=== PATIENT | female | born 2000 | race Caucasian/White ===

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

== ENCOUNTER 2020-03-29 16:42 | Outpatient (REF) | payer OTHER, SELFPAY | END 2020-03-29 16:43 | disposition home or self-care (01) | LOC: HO.LAB 16:42 | PROVIDERS: Visit Provider Internal Medicine | DX: Z20.822 Contact with and (suspected) exposure to COVID-19 (principal) | CPT/HCPCS: 36415; C9803; U0003; U0005 ==

== ENCOUNTER 2020-09-16 13:42 | Outpatient (REF) | payer OTHER, SELFPAY ==
[2020-09-19 03:47] LABS: HBc Num1 0.18 S/CO (0.00-0.79); HBsAGNum1 0.17 S/CO (0.00-0.99); Hepatitis B Core Antibody Nonreactive (Nonreactive); Hepatitis B Surface Antigen Negative (Negative)
[2020-09-19 03:55] LABS: HBS Num1 0.18 mIU/mL (0-7.99); ~Hepatitis B Surface Antibody NONREACTIVE (Nonreactive)
[2020-09-19 16:57] LABS: TS Negative Control Passed; TS Panel A 0; TS Panel B 0; TS Positive Control Passed; TSpotTB Negative (SeeBelow)
[2020-09-19 18:05] LABS: Mumps Virus IgG Antibody <9.00 AU/mL; Rubeola IgG (Measles) <13.50 AU/mL
[2020-09-19 18:16] LABS: Rubella IgG Antibody 1.47 Index; Varicella IgG Antibody <135.00 index
== END 2020-09-16 13:43 | disposition home or self-care (01) ==
LOC: HO.LAB 13:42
PROVIDERS: Visit Provider Internal Medicine
DX: Z01.84 Encounter for antibody response examination (principal); Z11.1 Encounter for screening for respiratory tuberculosis
CPT/HCPCS: 36415; 86481; 86704; 86706; 86735; 86762; 86765; 86787; 87340

== ENCOUNTER 2020-10-27 15:45 | Outpatient (REF) | payer OTHER, SELFPAY | END 2020-10-27 15:46 | disposition home or self-care (01) | LOC: HO.LAB 15:45 | PROVIDERS: Visit Provider Internal Medicine | DX: Z20.822 Contact with and (suspected) exposure to COVID-19 (principal) | CPT/HCPCS: C9803; U0003; U0005 ==

== ENCOUNTER 2020-12-08 11:03 | Outpatient (REF) | payer OTHER, SELFPAY ==
[2020-12-08 11:40] LABS: COVID-19 Test Negative (Negative)
== END 2020-12-08 11:04 | disposition home or self-care (01) ==
LOC: HO.LAB 11:03
PROVIDERS: Visit Provider Internal Medicine
DX: Z20.822 Contact with and (suspected) exposure to COVID-19 (principal)
CPT/HCPCS: 36415; 87635; C9803

== ENCOUNTER 2021-01-12 12:09 | Outpatient (REF) | payer OTHER, SELFPAY ==
[2021-01-12 12:58] LABS: COVID-19 Test Negative (Negative)
== END 2021-01-12 12:10 | disposition home or self-care (01) ==
LOC: HO.LAB 12:09
PROVIDERS: Visit Provider Internal Medicine
DX: Z20.822 Contact with and (suspected) exposure to COVID-19 (principal)
CPT/HCPCS: 36415; 87635; C9803

== ENCOUNTER 2021-05-04 08:30 | Outpatient (REF) | payer OTHER, SELFPAY ==
[2021-05-04 09:29] LABS: Hematocrit 40.9 % (37.0-47.0); Hemoglobin 13.3 g/dl (12.0-16.0); Mean Corpuscular HGB Conc 32.5 g/dl (31.0-35.0); Mean Corpuscular Hemoglobin 28.7 pg (27.0-33.0); Mean Corpuscular Volume 88.3 fL (80.0-98.0); Mean Platelet Volume 9.8 fL (9.4-12.3); Platelet Count 360 X10*3/uL (160-400); Red Blood Count 4.63 X10*6/uL (4.20-5.50); Red Cell Distribution Width 12.1 % (11.0-16.0); White Blood Count 10.6 X10*3/uL (4.8-10.8)
[2021-05-04 10:15] LABS: Anion Gap 13 (12-20); Blood Urea Nitrogen 20 mg/dL (9-16); Calcium 9.8 mg/dL (8.4-10.2); Carbon Dioxide 24 mmol/L (22-29); Chloride 106 mmol/L (96-108); Cholesterol 132 mg/dL; Estimated Glomerular Filt Rate > 60; Glucose Fasting 84 mg/dL (60-99); HDL Cholesterol 43 mg/dL; LDL Cholesterol Calculated 79 mg/dl; Potassium 4.2 mmol/L (3.3-5.1); Sodium 139 mmol/L (135-145); Triglycerides 53 mg/dL
[2021-05-04 10:22] LABS: TSH reflex Free T4 1.47 uIU/mL (0.32-4.0)
== END 2021-05-04 08:31 | disposition home or self-care (01) ==
LOC: HO.LAB 08:30
PROVIDERS: PCP Internal Medicine; Visit Provider Nurse Practitioner Family
DX: Z00.00 Encounter for general adult medical examination without abnormal findings (principal); E66.9 Obesity, unspecified; F41.9 Anxiety disorder, unspecified; E78.00 Pure hypercholesterolemia, unspecified
CPT/HCPCS: 36415; 80048; 80061; 84443; 85027

== ENCOUNTER 2021-10-09 10:54 | Outpatient (REF) | payer BC, SELFPAY ==
[2021-10-11 22:36] LABS: TS Negative Control Passed; TS Panel A 0; TS Panel B 0; TS Positive Control Passed; TSpotTB Negative (Negative)
== END 2021-10-09 10:55 | disposition home or self-care (01) ==
LOC: HO.LAB 10:54
PROVIDERS: PCP Internal Medicine; Visit Provider Internal Medicine
DX: Z11.1 Encounter for screening for respiratory tuberculosis (principal)
CPT/HCPCS: 36415; 86481

== ENCOUNTER 2021-12-14 13:54 | Outpatient (REF) | payer BC, SELFPAY ==
[2021-12-16 13:22] LABS: TS Negative Control Passed; TS Panel A 1; TS Panel B 1; TS Positive Control Passed; TSpotTB Negative (Negative)
== END 2021-12-14 13:55 | disposition home or self-care (01) ==
LOC: HO.LAB 13:54
PROVIDERS: PCP Internal Medicine; Visit Provider Internal Medicine
DX: Z11.1 Encounter for screening for respiratory tuberculosis (principal)
CPT/HCPCS: 36415; 86481

== ENCOUNTER → 2022-08-29 08:07 | Outpatient (BNVA) | payer OTHER, SELFPAY | PROVIDERS: PCP Internal Medicine; Visit Provider Physician Assistant Surgical ==

== ENCOUNTER 2023-05-23 11:47 | Emergency (ER) | payer OTHER, SELFPAY ==
[2023-05-23 11:54] VITALS: BP 138/88; PULSE 97; RESP 16; TEMP 37; O2SAT 99; BMI 43.8
--- NOTE | 2023-05-23 11:54 | ED.GENADULT ---
HPI - General Adult General Chief complaint: OB Stated complaint: Not feeling well Related Data Home Medications Medication Instructions Recorded Confirmed hydroxyzine HCl 10 mg tablet 10 mg PO TID PRN 08/29/22 Previous Rx's Medication Instructions Recorded meclizine 25 mg tablet 25 mg PO DAILY PRN motion sickness 09/21/20 7 days #7 tabs escitalopram oxalate 10 mg tablet 10 mg PO DAILY 90 days #90 tabs 05/21/23 Allergies Allergy/AdvReac Type Severity Reaction Status Date / Time No Known Allergies Allergy Verified 05/23/23 11:54 COUNTS INCLUDE 234 BEDS AT THE [facility] Past Medical History Medical History (Updated 05/24/23 @ 16:16 by KHOA Lee) Vertigo Obese Anxiety Surgical History (Updated 08/29/22 @ 08:27 by ZAIN Iraheta) Hx of wisdom tooth extraction Hx of LASIK Family History Family History Mother Hypertension Father GERD (gastroesophageal reflux disease) Family/Other Substance use disorder Brother Anxiety Social History Social History (Updated 07/20/22 @ 13:46 by LIBRA Carr) Housing: Apartment Alcohol intake: current Alcohol intake frequency: holidays/special occasions only Alcohol type: beer Patient Tobacco Use Status: Never used Tobacco e-Cigarette/Vaping Use: Never Used Second Hand Smoke Exposure: No Advance Directives: No Advance Directives Information Provided: No service: No Current occupational status: employed Cognitive needs: No Hearing needs: No Vision needs: No Physical Exam ED Vital Signs: Vital Signs - 24 hr 05/23/23 11:54 Temperature 98.6 F Pulse Rate 97 Respiratory Rate 16 Blood Pressure 138/88 Pulse Oximetry 99 Oxygen Delivery Method Room Air BMI result Body Mass Index 43.8 Course Course Course Narrative: RME:?23 yo female, 34 wks , here for eval of not feeling well . admits to headache, body aches x2 days. reports blowing her nose this morning and there were chunks of blood . once she got to work she felt clammy. talked to her OB who advised her to come to the ED. last OB appointment was 2 weeks ago without complications. admits that she's had more vaginal discharge and lower abdominal cramping which her OB is aware of and believes she may be experiencing aldo bah. no vaginal bleeding. labs ordered Full HPI, ROS and PE to be performed by the primary ED provider. Reevaluation(s) Reevaluation #1: Patient left the ED without completing treatment Medical Decision Making Lab Data Labs: Lab Results 05/23/23 Range/Units 12:40 Influenza Type A (PCR) NEGATIVE (Negative) Influenza Type B (PCR) NEGATIVE (Negative) RSV RNA Qual (PCR) NEGATIVE (Negative) SARS-CoV-2 RNA (RT-PCR) NEGATIVE (Negative) Discharge Plan Discharge Clinical Impression: Flu-like symptoms Patient Disposition: Left W/O Completing Treatment Prescriptions: No Action meclizine 25 mg tablet 25 mg PO DAILY PRN (Reason: motion sickness) 7 Days Qty: 7 0RF escitalopram oxalate 10 mg tablet 10 mg PO DAILY 90 Days Qty: 90 0RF hydroxyzine HCl 10 mg tablet 10 mg PO TID PRN Discharge Date/Time: 05/23/23 13:58
--- NOTE | 2023-05-23 12:41 | MHC.EDTECH ---
This pct attempted to draw labs on patient but patients veins blow easily and are very deep
[2023-05-23 13:27] LABS: Influenza A PCR NEGATIVE (Negative); Influenza B PCR NEGATIVE (Negative); Resp Syncy Virus RNA Qual PCR NEGATIVE (Negative); SARS COV2 PCR INHOUSE NEGATIVE (Negative)
== END 2023-05-23 13:58 | disposition left against medical advice (07) ==
PROVIDERS: Physician Assistant Medical; Emergency Provider Emergency Medicine; PCP Internal Medicine
DX: O26.893 Other specified pregnancy related conditions, third trimester (principal); R51.9 Headache, unspecified; R68.89 Other general symptoms and signs; Z3A.34 34 weeks gestation of pregnancy; Z03.818 Encounter for observation for suspected exposure to other biological agents ruled out
CPT/HCPCS: 0241U; 99281; 99283

== ENCOUNTER 2024-06-12 10:49 | Outpatient (REF) | payer BC, OTHER, SELFPAY ==
[2024-06-15 16:04] LABS: TS Negative Control Passed; TS Panel A 0; TS Panel B 0; TS Positive Control Passed; TSpotTB Negative (Negative)
== END 2024-06-12 10:50 | disposition home or self-care (01) ==
LOC: HO.LAB 10:49
PROVIDERS: PCP Internal Medicine; Visit Provider Internal Medicine
DX: Z11.1 Encounter for screening for respiratory tuberculosis (principal)
CPT/HCPCS: 36415; 86481

== ENCOUNTER 2024-08-28 14:31 | Emergency (ER) | payer BC, OTHER, SELFPAY ==
--- NOTE | ~2024-08-28 | US_ITS ---
CLINICAL HISTORY: RUQ epigastric pain --- Additional Notes or Special Instructions: look at gallbladder, ducts, liver, pancreas US abdomen limited. COMPARISON: None provided. Technique: Real time sonographic imaging, including color-flow imaging, was performed by the electrification adviser. Multiple new accounts representative static images were saved for review. FINDINGS: The visualized portions of the pancreas appear normal. The liver has diffusely increased echogenicity. Focal fatty sparing present along the gallbladder fossa. The main portal vein is antegrade. Liver, right lobe size: 17.7 cm, enlarged The gallbladder is normal in size. No cholelithiasis or sludge identified. There is a equivocal sonographic Vallejo's sign as patient had received pain medication. Gallbladder wall: 2 mm, normal. Common bile duct: 3 mm, normal. No free intraperitoneal fluid identified. IMPRESSION: 1. No acute findings. No evidence of cholecystitis. 2. Hepatomegaly with hepatic steatosis. This document has been electronically signed by: Yusuf Noble MD on 08/28/2024 17:52:39
[2024-08-28 14:46] VITALS: BP 130/99; PULSE 108; RESP 17; TEMP 36.8; O2SAT 98; BMI 39.6
--- NOTE | 2024-08-28 14:46 | ED.ABDPAIN ---
HPI - Abdominal Pain General Chief Complaint: Nausea/Vomiting/Diarrhea Stated Complaint: abd pain Time Seen by Provider: 08/28/24 14:45 Source: patient Mode of arrival: ambulatory Limitations: no limitations History of Present Illness ED Provider: ANGELICA BAHENA PA-C HPI narrative: 24 year old female presents to the ED today for evaluation of epigastric abdominal pain which began early this morning. Pain is localized to epigastric region, no radiation. Pain has been constant since onset, wax and wanes in severity, described as a sharp sensation. Pain is currently 4/10 and 8/10 at its worst. Reports pain began after eating a slice of pizza and some ice cream early this morning around 0100. She states her partner at bedside consumed this food as well however he is asymptomatic. Reports associated loose stools and 3 episodes of nonbloody emesis. Unable to tolerate PO intake. She did not trial any OTC meds for her pain. Denies recent antibiotic use. Denies recent travel outside the [place] She is currently on Zepbound for weight loss and has been tolerating this well. Denies etoh consumption. Denies illicit substance use. Denies fever, chills, urinary sx. Related Data Home Medications ?Medication ?Instructions ?Recorded ?Confirmed hydroxyzine HCl 10 mg tablet 10 mg PO TID PRN 08/29/22 Previous Rx's ?Medication ?Instructions ?Recorded meclizine 25 mg tablet 25 mg PO DAILY PRN motion sickness 09/21/20 7 days #7 tabs escitalopram oxalate 10 mg tablet 10 mg PO DAILY 90 days #90 tabs 06/07/24 ondansetron 4 mg disintegrating 4 mg PO Q12H PRN nausea and 08/28/24 tablet vomiting 5 days #10 tabs Allergies Allergy/AdvReac Type Severity Reaction Status Date / Time No Known Allergies Allergy Verified 08/28/24 14:47 Review of Systems Review of Systems Constitutional: No fever, chills, fatigue, night sweats, weight changes ENT/Mouth: No ear pain, hearing loss, nasal congestion, sinus pain, rhinorrhea, sore throat Eyes: No eye pain, swelling, redness, vision changes, discharge Cardio: No chest pain, palpitations, GOULD, orthopnea, peripheral edema Pulm: No SOB, cough, sputum, wheezing, dyspnea, hemoptysis GI: No hematemesis, constipation, hematochezia, melena, +abd pain, +N/V/D : No irregular bleeding, dysuria, frequency, urgency, hesitancy, hematuria, flank pain, urinary flow changes, urinary incontinence or retention MSK: No back pain, neck pain, joint pain, myalgias Skin: No lesions, rashes Neuro: No weakness, numbness, paresthesias, LOC, dizziness, headache Psych: No anxiety/panic, depression, SI/HI, AH/VH All other systems reviewed and are negative. [facility] Past Medical History Attestation statement: The following information was validated with the patient. Source: old records reviewed and nursing notes reviewed Medical History Vertigo Obese Anxiety Surgical History Hx of wisdom tooth extraction Hx of LASIK Family History Family History Mother Hypertension Father GERD (gastroesophageal reflux disease) Family/Other Substance use disorder Brother Anxiety Social History Social History Housing: Apartment Alcohol intake: current Alcohol intake frequency: holidays/special occasions only Alcohol type: beer Patient Tobacco Use Status: Never used Tobacco e-Cigarette/Vaping Use: Never Used Second Hand Smoke Exposure: No service: No Current occupational status: employed Cognitive needs: No Hearing needs: No Vision needs: No Physical Exam ED Vital Signs: Vital Signs - 24 hr 08/28/24 14:46 08/28/24 15:25 08/28/24 18:05 Temperature 98.2 F 98.7 F Pulse Rate 108 H 65 65 Respiratory Rate 17 16 16 Blood Pressure 130/99 H 120/81 120/81 Pulse Oximetry 98 98 98 Oxygen Delivery Method Room Air Room Air Room Air BMI result Body Mass Index 39.6 Tachycardic, hypertensive, afebrile General: Well appearing, in no acute distress. Skin: Warm, dry, intact. No rashes or lesions. Head: Normocephalic, atraumatic. EENT: Hearing is intact b/l. Conjunctiva clear. Sclera is anicteric. PERRLA. EOM intact. Moist mucous membranes.? Neck: Supple without LAD Cardiac: Chest wall symmetric. RRR Lungs: Normal respiratory effort without accessory muscle use. CTA bilaterally Abdomen: soft, nondistended, tender to palpation of epigastric region and right upper quadrant. No rebound tenderness. Active bowel sounds x4. Back: No midline spinous or paraspinal tenderness. No step off deformity. Ext: Upper and lower extremities atraumatic, without tenderness, deformity, swelling or erythema Neuro: AOx3. Normal speech. Ambulating with steady gait. Course Course Course Narrative: 1616 -- CBC with leukocytosis to 16.5 with left shift. This may be reactive secondary to vomiting. No anemia. H&H stable. Chemistry without acute electrolyte abnormality requiring intervention. No KASHIF. Liver function WNL. Lipase WNL. UA/ u preg pending. US pending. > medicated with IV fluids, Toradol, Zofran. Plan to re-evaluate. 1800 -- Ultrasound unremarkable. Incidental finding of hepatic steatosis. Gallbladder normal. I have suspicion for gastroenteritis. Patient is well-appearing, hemodynamically stable, reports improvement in symptoms with meds and fluids. Used shared decision-making to determine discharge home. Patient has remained stable throughout ED visit today. Discussed worrisome signs and symptoms and when to return to the ED. All questions answered at this time. Patient is agreeable with disposition and stable for discharge. Medical Decision Making Medical Decision Making [facility] Narrative: 24 year old female presents to the ED today for evaluation of epigastric abdominal pain which began early this morning. Tachycardic and hypertensive on arrival. Vitals have otherwise been stable. Afebrile. On exam, abdomen is soft, nondistended, tender to palpation of the epigastric region and right upper quadrant without rebound tenderness. Active bowel sounds x4. Plan for labs, viral swabs, UA, IVF + zofran and re-evaluation. Differential Diagnosis Differential Diagnoses: The differential diagnosis associated with the presentation includes gastroenteritis, biliary colic, cholecystitis, appendicitis, renal colic, nephrolithiasis, UTI, pyelonephritis, gastritis, PUD, IUP, viral syndrome Admission/Observation not indicated Lab Data [facility] Lab Attestation statement: I reviewed the patient's lab results. As above 08/28/24 15:19 08/28/24 15:19 Labs: Lab Results 0708/28/24 08/28/24 Range/Units 15:19 15:19 17:27 WBC 16.5 H (4.8-10.8) X10*3/uL RBC 5.17 (4.20-5.50) X10*6/uL Hgb 14.8 (12.0-16.0) g/dl Hct 43.0 (37.0-47.0) % MCV 83.2 (80.0-98.0) fL MCH 28.6 (27.0-33.0) pg MCHC 34.4 (31.0-35.0) g/dl RDW 12.9 (11.0-16.0) % Plt Count 380 (160-400) X10*3/uL MPV 9.3 L (9.4-12.3) fL Immature Gran % (Auto) 0.5 H (0.0-0.4) % Neut % (Auto) 83.3 H (45-73) % Lymph % (Auto) 10.7 L (20-40) % [place] % (Auto) 3.4 (2-11) % Eos % (Auto) 1.9 (0-4) % Baso % (Auto) 0.2 (0-2) % Lymph # (Auto) 1.8 (1.2-4.9) X10*3/uL [place] # (Auto) 0.6 (0.1-1.2) X10*3/uL Eos # (Auto) 0.3 (0.0-0.4) X10*3/uL Baso # (Auto) 0.0 (0.0-0.2) X10*3/uL Abs Immat Gran (auto) 0.09 H (0.00-0.03) X10*3/uL Absolute Neuts (auto) 13.7 H (2.0-8.3) x10*3/uL Absolute Nucleated RBC 0.000 (0.0-0.012) X10*3/uL Nucleated RBC % (auto) 0.0 (0.0-0.2) /100WBC Sodium 142 (135-145) mmol/L Potassium 4.2 (3.3-5.1) mmol/L Chloride 110 H (96-108) mmol/L Carbon Dioxide 21 L (22-29) mmol/L Anion Gap 15 (12-20) BUN 9 (9-16) mg/dL Creatinine 0.65 (0.5-1.4) mg/dL Estim Creat Clear Calc 157.4 Estimated GFR > 60 Random Glucose 89 (60-115) mg/dL Calcium 9.3 (8.4-10.2) mg/dL Magnesium 1.8 Cancelled (1.6-2.6) mg/dL Total Bilirubin 0.4 (0.0-1.0) mg/dL AST 24 (5-31) U/L ALT 23 (0-31) U/L Alkaline Phosphatase 63 (39-117) U/L Total Protein 7.3 (6.5-8.0) g/dL Albumin 4.5 (3.5-5.0) g/dL Lipase 14 (8-78) U/L Urine Color Yellow Urine Appearance Clear Urine pH 5.5 (5.0-9.0) Ur Specific [place] 1.025 (1.005-1.025) Urine Protein Trace (Neg-Trace) mg/dL Urine Glucose (UA) Negative (Negative) mg/dL Urine Ketones 40 (Negative) mg/dL Urine Blood Negative (Negative) Urine Nitrite Negative (Negative) Ur Leukocyte Esterase Negative (Negative) Urine RBC 0-2 (0-2) /HPF Urine WBC 0-5 (0-5) /HPF Ur Squamous Epith Cells 3-5 (0-2) /HPF Urine Bacteria None Seen (None Seen) Hyaline Casts 3-5 (0-2) /LPF Urine Test NEGATIVE (NEGATIVE) Independent Interpretation I performed an independent interpretation of an: Ultrasound Interpretation: Abdominal ultrasound without gallbladder stones Radiology Impression Discussion of test interpretation with radiology: I have reviewed the radiologist's reading. Radiologist Impression: Date of Service: 08/28/24 Procedure(s): US abdomen limited Accession Number(s): [id number] cc: Angelica Bahena; Angie Amador MD~ CLINICAL HISTORY: RUQ epigastric pain --- Additional Notes or Special Instructions: look at gallbladder, ducts, liver, pancreas US abdomen limited. COMPARISON: None provided. Technique: Real time sonographic imaging, including color-flow imaging, was performed by the [id number]/m60 tank driver. Multiple commercial sales representative static images were saved for review. FINDINGS: The visualized portions of the pancreas appear normal. The liver has diffusely increased echogenicity. Focal fatty sparing present along the gallbladder fossa. The main portal vein is antegrade. Liver, right lobe size: 17.7 cm, enlarged The gallbladder is normal in size. No cholelithiasis or sludge identified. There is a equivocal sonographic Vallejo's sign as patient had received pain medication. Gallbladder wall: 2 mm, normal. Common bile duct: 3 mm, normal. No free intraperitoneal fluid identified. IMPRESSION: 1. No acute findings. No evidence of cholecystitis. 2. Hepatomegaly with hepatic steatosis. This document has been electronically signed by: Yusuf Noble MD on 08/28/2024 17:52:39 External Record Review External record reviewed: Inpatient record, Office record, Outpatient record and Prior outpatient labs Prescription Management I considered prescription management with: Other (zofran) Social Determinants Patient?s care significantly limited by Social Determinants of Health including: Other Social Determinant of Health Medications Administered Discontinued Medications Generic Name Dose Route Start Last Admin Trade Name Freq PRN Reason Stop Dose Admin Sodium Chloride 1,000 mls @ 999 mls/hr 08/28/24 15:15 08/28/24 16:58 Ns IV 08/28/24 16:15 Infused .Q1H1M MATT Infusion Ketorolac Tromethamine 15 mg 08/28/24 15:48 08/28/24 15:59 Ketorolac Tromethamine 15 Mg/Ml Vial IVPUSH 08/28/24 15:49 15 mg ONCE ONE Administration Ondansetron HCl 4 mg 08/28/24 15:13 08/28/24 15:21 Ondansetron Hcl 4 Mg/2 Ml Vial IVPUSH 08/28/24 15:14 4 mg ONCE ONE Administration Critical Care Time Critical Care Time Critical Care Time: No Discharge Plan Discharge Clinical Impression: Gastroenteritis Patient Disposition: Home, Self-Care Instructions: Gastroenteritis (ED) Additional Instructions: Your lab workup today was reassuring.? Your urine test was negative for infection and .? Your symptoms are most consistent with a viral stomach bug, also known as gastroenteritis.? The treatment for this is supportive care. Symptoms usually resolve on their own in 48-72 hours.? The recommendation is rest and lots of oral hydration.? For the next 24 hours, stick to a VIANEY diet (bananas rice, applesauce, tea, and toast) Zofran is an anti-nausea medication. This has been sent to your pharmacy for you to take as needed for nausea.? You can also try over the counter Pepto Bismol or Imodium as needed for upset stomach and diarrhea.? Follow up with your primary care provider this week. If you develop new or worsening symptoms call 911 or come back to the ER for further evaluation. Prescriptions: New ondansetron 4 mg tablet,disintegrating 4 mg PO Q12H PRN (Reason: nausea and vomiting) 5 Days Qty: 10 0RF No Action meclizine 25 mg tablet 25 mg PO DAILY PRN (Reason: motion sickness) 7 Days Qty: 7 0RF escitalopram oxalate 10 mg tablet 10 mg PO DAILY 90 Days Qty: 90 0RF hydroxyzine HCl 10 mg tablet 10 mg PO TID PRN Stand Alone Forms: Work/School Release Interventions: ED Discharge Assessment Last Done: 08/28/24 18:05 Discharge Date/Time: 08/28/24 18:06 Print Language: Maltese
[2024-08-28 15:25] VITALS: BP 120/81; PULSE 65; RESP 16; O2SAT 98
[2024-08-28 15:29] LABS: MANUAL DIFF FLAG NO
[2024-08-28 15:33] LABS: Hematocrit 43.0 % (37.0-47.0); Hemoglobin 14.8 g/dl (12.0-16.0); Imm Gran Abs Auto 0.09 X10*3/uL (0.00-0.03); Imm Gran Pct Auto 0.5 % (0.0-0.4); Lymphocytes Absolute Auto 1.8 X10*3/uL (1.2-4.9); Mean Corpuscular HGB Conc 34.4 g/dl (31.0-35.0); Mean Corpuscular Hemoglobin 28.6 pg (27.0-33.0); Mean Corpuscular Volume 83.2 fL (80.0-98.0); NRBC Abs Auto 0.000 X10*3/uL (0.0-0.012); NRBC Pct Auto 0.0 /100WBC (0.0-0.2); Platelet Count 380 X10*3/uL (160-400); Red Blood Count 5.17 X10*6/uL (4.20-5.50); White Blood Count 16.5 X10*3/uL (4.8-10.8)
[2024-08-28 16:00] LABS: Alanine Aminotransferase 23 U/L (0-31); Albumin Level 4.5 g/dL (3.5-5.0); Alkaline Phosphatase 63 U/L (39-117); Anion Gap 15 (12-20); Aspartate Amino Transferase 24 U/L (5-31); Blood Urea Nitrogen 9 mg/dL (9-16); Calcium 9.3 mg/dL (8.4-10.2); Carbon Dioxide 21 mmol/L (22-29); Chloride 110 mmol/L (96-108); Creatinine Clr Calc Pharmacy 157.4; Estimated Glomerular Filt Rate > 60; Lipase 14 U/L (8-78); Magnesium 1.8 mg/dL (1.6-2.6); Potassium 4.2 mmol/L (3.3-5.1); Sodium 142 mmol/L (135-145); Total Protein 7.3 g/dL (6.5-8.0)
[2024-08-28 17:34] LABS: Appearance Urine Clear; Glucose Urine UA Negative (Negative); PH 5.5 (5.0-9.0); Specific Gravity - Urine 1.025 (1.005-1.025); UPreg QC Valid YES
[2024-08-28 18:05] VITALS: BP 120/81; PULSE 65; RESP 16; TEMP 37.1; O2SAT 98
== END 2024-08-28 18:06 | disposition home or self-care (01) ==
PROVIDERS: Emergency Provider Emergency Medicine Emergency Medical Services; PCP Internal Medicine
DX: K52.9 Noninfective gastroenteritis and colitis, unspecified (principal); R11.2 Nausea with vomiting, unspecified; R10.13 Epigastric pain; R00.0 Tachycardia, unspecified; I10 Essential (primary) hypertension; Z79.85 Long-term (current) use of injectable non-insulin antidiabetic drugs; Z79.899 Other long term (current) drug therapy
CPT/HCPCS: 36415; 76705; 80053; 81001; 81025; 83690; 83735; 85025; 96361; 96374; 96375; 99284; J1885; J2405

== ENCOUNTER → 2024-08-28 15:47 | Outpatient (BNV) | payer BC, OTHER, SELFPAY | PROVIDERS: Emergency Provider Emergency Medicine Emergency Medical Services; PCP Internal Medicine; Visit Provider Radiology Diagnostic Radiology | DX: K76.0 Fatty (change of) liver, not elsewhere classified (principal); R16.2 Hepatomegaly with splenomegaly, not elsewhere classified | CPT/HCPCS: 76705 ==